=== PATIENT | male | born 1960 | race Asian ===

== ENCOUNTER 2024-02-28 13:52 | Outpatient (CLI) | payer MEDICAID, MEDICARE | END 2024-02-28 23:59 | disposition home or self-care (01) | LOC: RAD 13:52 | PROVIDERS: ATTEND Student in an Organized Health Care Education/Training Program | DX: M77.32 Calcaneal spur, left foot (principal); M79.672 Pain in left foot; M25.872 Other specified joint disorders, left ankle and foot | CPT/HCPCS: 73630 ==